=== PATIENT | male | born 1945 | race Caucasian/White ===

== ENCOUNTER 2017-02-13 06:22 | Day surgery (SDC) | payer MEDICARE, OTHER ==
--- NOTE | ~2017-02-13 | EGD ---
EGD REPORT [facility] [address] [place] [address] NAME: DESTINY BERGER : [birth year] STATUS : REG [facility]#: [id number] AGE: 72 ADM/REG DATE : 02/13/17 MR#: [id number] REPORT SERV DATE: 02/13/17 DICTATED BY: YUKI ENRIQUEZ DATE: 02/13/17 REPORT STATUS : Draft [facility] BY: [facility] DATE: 02/13/17 [facility] Patient Name: Destiny Berger Date of : 1945 Attending MD: YUKI ENRIQUEZ MD Procedure Date No Time: 02/13/2017 Procedure: Colonoscopy Indications: High risk colon CA surveillance: Personal history multiple (3 or more) adenomas; last exam 2014. Patient Profile: Informed consent was obtained from the patient by me prior to the procedure. Risks, benefits, and alternatives were discussed including the risk of bleeding, perforation, infection, reaction to medicine, missed lesion, and cardiopulmonary complications. Referring MD: VINCE BUTLRE Medicines: Monitored Anesthesia Care Complications: No immediate complications. Procedure: Pre-Anesthesia Assessment: - ASA Grade Assessment: III - A patient with severe systemic disease. After I obtained informed consent, the scope was passed under direct vision. Throughout the procedure, the patient's blood pressure, pulse, and oxygen saturations were monitored continuously. The CF [id number] was introduced through the anus and advanced to the cecum, identified by appendiceal orifice and ileocecal valve. The colonoscope was slowly withdrawn with careful examination all mucosal surfaces including specific attention around flexures and tip deflection behind folds; retroflexion performed in rectum. The colonoscopy was performed without difficulty. The patient tolerated the procedure well. The quality of the bowel preparation was adequate. The ileocecal valve, appendiceal orifice and rectum were photographed. Findings: A sessile polyp was found at the splenic flexure. The polyp was 5 mm in size. The polyp was removed with a cold biopsy forceps. Resection and retrieval were complete. A sessile polyp was found in the ascending colon. The polyp was 5 mm in size. The polyp was removed with a cold biopsy forceps. Resection and retrieval were complete. Impression: - One 5 mm polyp at the splenic flexure. Resected and retrieved. EGD REPORT [address] [address] NAME: DESTINY BERGER : [birth year] STATUS : REG [facility] [place] PAT#: [id number] AGE: 72 ADM/REG DATE : 02/13/17 MR#: [id number] REPORT SERV DATE: 02/13/17 DICTATED BY: YUKI ENRIQUEZ DATE: 02/13/17 REPORT STATUS : Draft TRANSCRIBED BY: [employer] DATE: 02/13/17 - One 5 mm polyp in the ascending colon. Resected and retrieved. Recommendation: - Patient has a contact number available for emergencies. The signs and symptoms of potential delayed complications were discussed with the patient. Return to normal activities tomorrow. Written discharge instructions were provided to the patient. - Regular diet. - Continue present medications. - Await pathology results. - Repeat colonoscopy for surveillance based on pathology results. Procedure Code(s): --- Professional --- 42353, Colonoscopy, flexible, proximal to splenic flexure; with biopsy, single or multiple Diagnosis Code(s): --- Professional --- D12.3, Benign neoplasm of transverse colon Z86.010, Personal history of colonic polyps CPT copyright 2013 [employer]. All rights reserved. The codes documented in this report are preliminary and upon clinical review nurse review may be revised to meet current compliance requirements. YUKI ENRIQUEZ MD 02/13/2017 8:17 AM This report has been signed electronically. Number of Addenda: 0 Note Initiated On: 02/13/2017 7:47 AM Scope Withdrawal Time 0 hours 9 minutes 29 seconds [address] [place] [id number]
[~2017-02-13 06:22] MED LIST: ADVIL PO; AFRIN15 NAS; ALLEGRA180 PO; ASA5GR PO; ASAB PO; ASABAYER PO; ATEN50 PO; BRILINTA90 MG PO; COREG3 PO; COREG6 PO; HCTZ25B PO; HYDROCHLOROT25 MG PO; LOTE40 PO; MUCINEX600 MG PO; NORV5 PO; PRAVACHOL40 MG PO; PRILOSEC10 MG PO; SYN.15 PO; SYN125 PO; ZOCOR40 PO
== END 2017-02-13 23:59 | disposition home health service (06) ==
LOC: DMU 06:22
PROVIDERS: Internal Medicine Gastroenterology
PROC: 0DBL8ZX Excision of Transverse Colon, Via Natural or Artificial Opening Endoscopic, Diagnostic (ICD-10-PCS; 2017-02-13)
PROC: 0DBK8ZX Excision of Ascending Colon, Via Natural or Artificial Opening Endoscopic, Diagnostic (ICD-10-PCS; principal; 2017-02-13 07:30)
DX: Z12.11 Encounter for screening for malignant neoplasm of colon (principal); D12.2 Benign neoplasm of ascending colon; D12.3 Benign neoplasm of transverse colon; I10 Essential (primary) hypertension; K21.9 Gastro-esophageal reflux disease without esophagitis; E03.9 Hypothyroidism, unspecified; E78.00 Pure hypercholesterolemia, unspecified; Z86.010 Personal history of colon polyps; Z88.5 Allergy status to narcotic agent; Z87.891 Personal history of nicotine dependence
CPT/HCPCS: 88305; A9270-GY